=== PATIENT | male | born 1965 | race Caucasian/White ===

== ENCOUNTER 2017-06-21 23:59 | Emergency (ER) | payer OTHER ==
[~2017-06-21] VITALS: Ht 182.9 cm; Wt 102.3 kg
[2017-06-22 00:05] VITALS: TEMP 36.6; Ht 182.9 cm; Wt 102.3 kg
[2017-06-22] MEDS ORDERED: KETOROLAC TROMETHAMINE 30 MG/ML VIAL IV STA (00:23)
[2017-06-22] MEDS ORDERED: [UNRECOGNIZED DRUG - REMARK] PO (00:29)
[2017-06-22] MEDS ORDERED: ASPI81TA28 PO (00:29)
[2017-06-22] MEDS ORDERED: CARV3.122 PO (00:29)
[2017-06-22] MEDS ORDERED: LSN25 PO (00:29)
--- NOTE | 2017-06-22 00:31 | EMERGENCY ROOM VISIT NOTE ---
History Report prepared by Camronibkatheryn: Nilsa Redding Under the Supervision of: Dr. Melia Rodriguez D.O. First contact with patient: 00:14 Chief Complaint: ABDOMINAL PAIN Stated Complaint: ABDOMINAL PAIN Nursing Triage Summary: Pt c/o mid abdominal pain that started around 2000 tonight. 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 Couldn't stand pain so came here, c/o some nausea. States pain has been on/off past couple days as well. History of Present Illness The patient is a 52 year old male who presents to the Emergency Room with complaints of constant abdominal pain that began three hours ago. He states that he was traveling back to [place], where he lives, though he developed abdominal pain. He denies any history of abdominal surgeries. He reports a history of triple bypass and denies any chest pain. He states that he has not had a bowel movement for two days. He states that he has been off of his diet for a little bit, though has been eating. He reports nausea, though denies any vomiting. He denies any fevers, chills, cough, shortness of breath, urinary symptoms, leg cramping, or leg swelling. He denies any history of DM. Source of History: patient Onset: three hours ago Position: abdomen Timing: constant Associated Symptoms: + nausea, No fevers, No chills, No chest pain, No SOB, No vomiting, No urinary symptoms Note: Notes constipation. Denies any leg cramping or leg swelling. Review of Systems See HPI for pertinent positives & negatives. A total of 10 systems reviewed and were otherwise negative. Past Medical & Surgical Medical Problems: (1) CAD (coronary artery disease) Surgical Problems: (1) History of throat surgery (2) S/P triple vessel bypass Family History Cancer Diabetes mellitus Heart disease Hypertension Kidney disease Kidney stones Lung disease Social History Smoking Status: Current Every Day Smoker (1 ppd) Smokeless Tobacco Use: No Alcohol Use: occasionally (2 beers) Drug Use: none Marital Status: single Housing Status: lives with friends Occupation Status: employed Current/Historical Medications Scheduled Aspirin (Aspirin Ec), 81 MG PO DAILY Carvedilol (Coreg), 1 TAB PO BID Lisinopril (Lisinopril), 2.5 MG PO DAILY [Unknown Statin Med], 1 TAB PO DAILY Allergies Coded Allergies: No Known Allergies (Unverified , 06/22/17) Physical Exam Vital Signs Date Time Temp Pulse Resp B/P (MAP) Pulse Ox O2 Delivery O2 Flow Rate FiO2 06/22/17 03:21 88 18 140/94 94 Room Air 06/22/17 03:10 68 18 169/91 97 Room Air 06/22/17 00:05 36.6 72 18 182/101 96 Room Air Physical Exam HEENT: Head - normocephalic and atraumatic Pupils are equal, round, and reactive to light. Extraocular eye muscles are intact, and sclera are anicteric. Nose - moist nasal mucosa without discharge. Mouth - moist buccal mucosa. Oropharynx is nonerythematous and there is no tonsillar exudate or edema noted. Neck: Supple; no JVD, nuchal rigidity, cervical lymphadenopathy. Heart: Regular rate and rhythm. There is a normal S1 and S2 with no murmurs, clicks, or gallops appreciated. Lungs: Clear to auscultation bilaterally with no wheezes, rales, or rhonchi. Abdomen: Soft, tenderness in RUQ and epigastric region, nondistended, with good bowel sounds. There are no palpable pulsatile masses or hepatosplenomegaly. There is no guarding, rigidity, or rebound noted. Extremities: No evidence of cyanosis, clubbing, or edema. There are easily palpable peripheral pulses. Skin: warm and dry with good turgor and no rashes. Medical Decision & Procedures ER Provider Diagnostic Interpretation: Radiology results as stated below per my review and interpretation: CHEST/ABDOMEN XR: Significant colonic retention with large amount of stool within the rectum. Laboratory Results 06/22/17 00:20 Red Blood Count 5.07, Mean Corpuscular Volume 90.9, Mean Corpuscular Hemoglobin 32.5, Mean Corpuscular Hemoglobin Concent 35.8, Mean Platelet Volume 9.8, Neutrophils (%) (Auto) 65.1, Lymphocytes (%) (Auto) 21.5, Monocytes (%) (Auto) 7.7, Eosinophils (%) (Auto) 4.9, Basophils (%) (Auto) 0.5, Neutrophils # (Auto) 6.07, Lymphocytes # (Auto) 2.01, Monocytes # (Auto) 0.72, Eosinophils # (Auto) 0.46, Basophils # (Auto) 0.05 06/22/17 00:20 Test 06/22/17 00:05 06/22/17 00:20 Urine Color YELLOW Urine Appearance CLOUDY (CLEAR) Urine pH 7.5 (4.5-7.5) Urine Specific [place] 1.013 (1.000-1.030) Urine Protein NEG (NEG) Urine Glucose (UA) NEG (NEG) Urine Ketones NEG (NEG) Urine Occult Blood NEG (NEG) Urine Nitrite NEG (NEG) Urine Bilirubin NEG (NEG) Urine Urobilinogen NEG (NEG) Urine Leukocyte Esterase NEG (NEG) Urine WBC (Auto) 0 /hpf (0-5) Urine RBC (Auto) 0-4 /hpf (0-4) Urine Hyaline Casts (Auto) 0 /lpf (0-5) Urine Epithelial Cells (Auto) 5-10 /lpf (0-5) Urine Bacteria (Auto) NEG (NEG) White Blood Count 9.34 K/uL (4.8-10.8) Red Blood Count 5.07 M/uL (4.7-6.1) Hemoglobin 16.5 g/dL (14.0-18.0) Hematocrit 46.1 % (42-52) Mean Corpuscular Volume 90.9 fL (80-100) Mean Corpuscular Hemoglobin 32.5 pg (25-34) Mean Corpuscular Hemoglobin Concent 35.8 g/dl (32-36) Platelet Count 205 K/uL (130-400) Mean Platelet Volume 9.8 fL (7.4-10.4) Neutrophils (%) (Auto) 65.1 % Lymphocytes (%) (Auto) 21.5 % Monocytes (%) (Auto) 7.7 % Eosinophils (%) (Auto) 4.9 % Basophils (%) (Auto) 0.5 % Neutrophils # (Auto) 6.07 K/uL (1.4-6.5) Lymphocytes # (Auto) 2.01 K/uL (1.2-3.4) Monocytes # (Auto) 0.72 K/uL (0.11-0.59) Eosinophils # (Auto) 0.46 K/uL (0-0.5) Basophils # (Auto) 0.05 K/uL (0-0.2) RDW Standard Deviation 42.3 fL (36.4-46.3) RDW Coefficient of Variation 12.7 % (11.5-14.5) Immature Granulocyte % (Auto) 0.3 % Immature Granulocyte # (Auto) 0.03 K/uL (0.00-0.02) Anion Gap 5.0 mmol/L (3-11) Est Creatinine Clear Calc Drug Dose 73.4 ml/min Estimated GFR () 63.8 Estimated GFR (Non- 55.0 BUN/Creatinine Ratio 10.1 (10-20) Calcium Level 9.7 mg/dl (8.5-10.1) Total Bilirubin 0.6 mg/dl (0.2-1) Direct Bilirubin 0.2 mg/dl (0-0.2) Aspartate Amino Transf (AST/SGOT) 25 U/L (15-37) Alanine Aminotransferase (ALT/SGPT) 36 U/L (12-78) Alkaline Phosphatase 118 U/L (45-117) Total Protein 7.8 gm/dl (6.4-8.2) Albumin 4.1 gm/dl (3.4-5.0) Lipase 247 U/L (73-393) Laboratory results per my review. Medications Administered Medications (Trade) Dose Ordered Sig/Rita Route Start Time Stop Time Status Last Admin Dose Admin Ketorolac Tromethamine (Toradol Inj) 30 mg NOW STAT IV 06/22/17 00:23 06/22/17 00:25 DC 06/22/17 00:29 30 MG Sodium Chloride 1,000 ml @ 999 mls/hr Q1H1M STAT IV 06/22/17 01:25 06/22/17 02:25 DC 06/22/17 01:25 999 MLS/HR Procedure 0023: Ordered Toradol 30 mg IV 0125: Ordered Sodium Chloride 1,000 ml @ 999 mls/hr IV. Ordered soap and suds enema. ED Course 0018: Past medical records reviewed. The patient was evaluated in room B10. A complete history and physical exam was performed. An IV lock was initiated and labs are drawn as above. The patient went for plain x-rays of the abdomen as described above. 0023: Ordered Toradol 30 mg IV 0123: I reassessed the patient at this time. I discussed the results and treatment plan with the patient. He will receive a soap suds enema. He reports the Toradol was relieving. 0125: Ordered Sodium Chloride 1,000 ml @ 999 mls/hr IV. 0304: I reassessed the patient at this time. He had significant output. He is feeling better. I discussed the results and treatment plan with the patient. I answered all pertaining questions that he had. He expressed understanding and verbalized agreement. The patient will be discharged home. Medical Decision The patient is a 52 year old male who presents to the ED with abdominal pain. Differential diagnosis includes SBO, constipation, cholecystitis, colitis, and ulcerative disease. Lab results showed: Negative UA. BUN 15. Creat 1.4. Gluc 110. Normal LFTs. Normal Lipase. Stable H&H. No leukocytosis. This is a 52-year-old male patient who presents to the emergency department with epigastric abdominal pain. On plain abdominal x-rays, the patient has significant colonic fecal retention with a large amount of stool within the rectum. A soapsuds enema was performed with significant results. He was encouraged to avoid dairy and bananas over the next 3 days. He should increase his clear liquid intake and avoid caffeine. He will take milk of magnesia in the morning and then again at noontime if he had no significant results. Medication Reconcilliation Current Medication List: was personally reviewed by me Blood Pressure Screening Patient's blood pressure: Elevated blood pressure Blood pressure disposition: Referred to PCP Impression Primary Impression: Constipation Additional Impression: Epigastric abdominal pain Scribe Attestation The scribe's documentation has been prepared under my direction and personally reviewed by me in its entirety. I confirm that the note above accurately reflects all work, treatment, procedures, and medical decision making performed by me. Departure Information Dispostion Home / Self-Care Referrals No Doctor, Assigned (PCP) Forms Call Back Authorization, HOME CARE DOCUMENTATION FORM, IMPORTANT VISIT INFORMATION Patient Instructions ED Constipation, My [facility] [employer] Additional Instructions Take plenty of clear liquids Avoid caffeine Take milk of magnesia - cup full in AM. If no significant BM ny noon - you may repeat it. Avoid dairy and bananas for next 3 days Problem Qualifiers Primary Impression: Constipation Constipation type: unspecified constipation type Qualified Codes: K59.00 - Constipation, unspecified
[2017-06-22 00:35] LABS: BASO % 0.5 %; BASO ABS # 0.05 K/uL (0-0.2); EOS % 4.9 %; EOS ABS # 0.46 K/uL (0-0.5); HEMATOCRIT 46.1 % (42-52); HEMOGLOBIN 16.5 g/dL (14.0-18.0); IG# 0.03 K/uL (0.00-0.02); LYMPH % 21.5 %; LYMPH ABS # 2.01 K/uL (1.2-3.4); MEAN CELL VOLUME 90.9 fL (80-100); MEAN CORPUSCULAR HEMOGLOBIN 32.5 pg (25-34); MEAN CORPUSCULAR HGB CONC 35.8 g/dl (32-36); MEAN PLATELET VOLUME 9.8 fL (7.4-10.4); MONO % 7.7 %; MONO ABS # 0.72 K/uL (0.11-0.59); NEUT % 65.1 %; NEUT ABS # 6.07 K/uL (1.4-6.5); PLATELET COUNT 205 K/uL (130-400); RED CELL DISTRIBUTION WIDTH CV 12.7 % (11.5-14.5); RED CELL DISTRIBUTION WIDTH SD 42.3 fL (36.4-46.3); WHITE BLOOD COUNT 9.34 K/uL (4.8-10.8)
[2017-06-22 00:44] LABS: ALBUMIN 4.1 gm/dl (3.4-5.0); CALCIUM 9.7 mg/dl (8.5-10.1); CREATININE 1.44 mg/dl (0.60-1.40); POTASSIUM 4.3 mmol/L (3.5-5.1)
[2017-06-22 00:47] LABS: TOTAL PROTEIN 7.8 gm/dl (6.4-8.2)
[2017-06-22] MEDS ORDERED: SODIUM CHLORIDE 0.9% 1000ML 1,000 ML IV STA (01:25)
[2017-06-22 03:21] VITALS: BP 140/94; PULSE 88; O2SAT 94
--- NOTE | 2017-06-22 07:07 | DIAGNOSTIC IMAGING REPORT ---
PA CHEST WITH ABDOMINAL SERIES CLINICAL HISTORY: Nausea. Generalized abdominal pain. FINDINGS: A PA chest radiograph is obtained. No prior studies are available for comparison at the time of dictation. The patient is status post midline sternotomy. The heart is top normal for projection. The pulmonary vasculature is noncongested. There are scattered calcified granulomas. The lungs and pleural spaces are otherwise clear. No pneumothorax is seen. The bony thorax is grossly intact. Supine and erect abdominal radiographs are obtained. No prior studies are available for comparison at the time of dictation. There is a nonobstructed abdominal bowel gas pattern. Moderate colonic fecal retention is observed. No evidence of intraperitoneal free air is seen. Numerous calcified splenic granulomas are noted. The lumbosacral spine and bony pelvis appear intact. IMPRESSION: 1. No active disease in the chest. 2. Nonobstructed abdominal bowel gas pattern. Electronically signed by: Livan Diaz M.D. 06/22/2017 7:05 AM Dictated Date/Time: 06/22/2017 7:04 AM
== END 2017-06-22 03:26 | disposition home or self-care (01) ==
LOC: EDBD 23:59 → C.EDB 06-22 00:02
DX: K59.00 Constipation, unspecified (principal); R03.0 Elevated blood-pressure reading, without diagnosis of hypertension; I25.10 Atherosclerotic heart disease of native coronary artery without angina pectoris; Z95.1 Presence of aortocoronary bypass graft; F17.200 Nicotine dependence, unspecified, uncomplicated